=== PATIENT | male | born 1980 | race Caucasian/White ===

== ENCOUNTER 2021-06-06 11:23 | Emergency (ER) | payer BC, SELFPAY ==
--- NOTE | ~2021-06-06 | XR_ITS ---
EXAMINATION: XR finger 2nd RT min 2V DATE: 06/06/2021 11:57 INDICATION: Right hand second digit injury and pain. TECHNIQUE: 4 views of right hand second digit were obtained. COMPARISON: None. FINDINGS: Bone alignment is normal. No fracture. Joint spaces are well maintained. IMPRESSION: 1. No fracture. Reviewed, dictated and finalized at location A. [facility] IMPRESSION: 1. No fracture.
[2021-06-06 11:35] VITALS: BP 141/91; PULSE 82; RESP 18; TEMP 37; O2SAT 98
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
--- NOTE | 2021-06-06 11:59 | PC.NURSE ---
PT DECLINED ICE FOR COMFORT
== END 2021-06-06 12:25 | disposition home or self-care (01) ==
PROVIDERS: Emergency Provider Nurse Practitioner Family
DX: M79.644 Pain in right finger(s) (principal)
CPT/HCPCS: 73140; 99213; G0463